=== PATIENT | female | born 1995 | race Two or more races ===

== ENCOUNTER 2022-10-23 05:17 | Inpatient (IN) | payer OTHER ==
[~2022-10-23] VITALS: Ht 185.4 cm; Wt 3.2 kg
[2022-10-23] MEDS ORDERED: PRENATABS RX T1 EACH PO (05:54)
[2022-10-26] MEDS ORDERED: SENOKOT8.6 M1 PO (07:00)
[2022-10-26] MEDS ORDERED: SIMETHICONE125 M1 PO (07:00)
[2022-10-26] MEDS ORDERED: IBUPROFEN800 MG PO (07:00)
== END 2022-10-26 11:17 | disposition home or self-care (01) | DRG 788 ==
LOC: LDR 05:17 → O/R 17:19 → OB/GYN 19:04
PROVIDERS: ADMIT Obstetrics & Gynecology; ATTEND Obstetrics & Gynecology
PROC: 3E033VJ Introduction of Other Hormone into Peripheral Vein, Percutaneous Approach (ICD-10-PCS; 2022-10-23)
PROC: 3E0P7VZ Introduction of Hormone into Female Reproductive, Via Natural or Artificial Opening (ICD-10-PCS; 2022-10-23)
PROC: 4A1HXCZ Monitoring of Products of Conception, Cardiac Rate, External Approach (ICD-10-PCS; 2022-10-23)
PROC: 10D00Z1 Extraction of Products of Conception, Low, Open Approach (ICD-10-PCS; principal; 2022-10-23 17:00)
DX: O82 Encounter for cesarean delivery without indication (principal); O61.0 Failed medical induction of labor; Z3A.39 39 weeks gestation of pregnancy; Z37.0 Single live birth; Z20.822 Contact with and (suspected) exposure to COVID-19